=== PATIENT | female | born 1965 | race Caucasian/White ===

== ENCOUNTER 2019-11-14 14:38 | Outpatient (CLI) | payer BC, SELFPAY ==
--- NOTE | 2019-11-14 14:45 | MM_ITS ---
WS: [id number] BILATERAL DIGITAL SCREENING MAMMOGRAPHY WITH CAD CLINICAL INFORMATION: SCREENING HISTORY: Screening mammogram. No current complaints. COMPARISON: TECHNIQUE: Bilateral CC and MLO views. FINDINGS: The breasts are composed of heterogeneous fibroglandular density tissue, which can limit the detectio n of small underlying mass lesions. No suspicious mass, asymmetry, calcifications, or architectural d istortion. No evidence of malignancy. MM/[id number] IMPRESSION: BI-RADS: 1-Negative FOLLOW UP: 1 Year Follow-up Recommend return to annual screening mammography.
== END 2019-11-14 14:39 | disposition home or self-care (01) ==
LOC: RADSHAW 14:44
PROVIDERS: PCP Nurse Practitioner Family; Visit Provider Nurse Practitioner Family
DX: Z12.31 Encounter for screening mammogram for malignant neoplasm of breast (principal)
CPT/HCPCS: 77067

== ENCOUNTER 2020-12-15 14:42 | Outpatient (CLI) | payer BC, SELFPAY ==
--- NOTE | 2020-12-15 14:53 | XR_ITS ---
WS: [id number] LEFT WRIST: 3 VIEW(S) TECHNIQUE: PA, oblique and lateral. HISTORY: L WRIST PAIN COMPARISON: None available. No acute fracture or dislocation. No joint space abnormality. No soft tissue swelling. XR/XR wrist LT min 3V* [id number] IMPRESSION: Negative LEFT wrist.
== END 2020-12-15 14:43 | disposition home or self-care (01) ==
LOC: RAD 14:50
PROVIDERS: PCP Nurse Practitioner Family; Visit Provider Nurse Practitioner Family
DX: M25.532 Pain in left wrist (principal)
CPT/HCPCS: 73110

== ENCOUNTER 2021-01-04 08:36 | Outpatient (CLI) | payer BC, SELFPAY ==
--- NOTE | 2021-01-04 08:41 | MM_ITS ---
WS: [id number] Bilateral screening digital mammogram, 01/04/2021 Clinical Data: SCREENING Comparison: 11/14/2019, 12/11/2017, 11/26/2017, 11/24/2016, 11/05/2014, 11/04/2013, 11/06/2012, 10/21/2012, 11/12, 10/31/2010, 10/29/2009, 10/28/2008, 10/18/2007, 10/16/2006. Findings: The breast parenchymal pattern shows fibroglandular tissue No spiculated masses or clustered calcific ations are seen. There are no secondary signs of carcinoma. There is a mole marker on the right breas t. MM/[id number] Impression: 1. Negative bilateral mammogram unchanged. 2. Recommend annual screening mammograms. BIRADS: 1-Negative FOLLOW UP: 1 Year Follow-up The CAD hot box checker was used.
== END 2021-01-04 08:37 | disposition home or self-care (01) ==
LOC: RADSHAW 08:38
PROVIDERS: PCP Nurse Practitioner Family; Visit Provider Nurse Practitioner Family
DX: Z12.31 Encounter for screening mammogram for malignant neoplasm of breast (principal)
CPT/HCPCS: 77067

== ENCOUNTER → 2021-06-08 08:01 | Outpatient (BNVA) | payer BC, SELFPAY | PROVIDERS: PCP Nurse Practitioner Family; Referring Provider Nurse Practitioner Family; Visit Provider Specialist | DX: M25.532 Pain in left wrist (principal); G56.02 Carpal tunnel syndrome, left upper limb; M65.4 Radial styloid tenosynovitis [de Quervain] | CPT/HCPCS: 73110 ==

== ENCOUNTER 2021-06-21 06:00 | Outpatient (RCR) | payer BC, SELFPAY | END 2021-06-30 23:59 | disposition home or self-care (01) | LOC: TPT 06:00 | PROVIDERS: PCP Nurse Practitioner Family; Referring Provider Specialist; Visit Provider Specialist | DX: M25.512 Pain in left shoulder (principal) | CPT/HCPCS: 97110; 97140; 97162 ==

== ENCOUNTER 2021-07-01 06:00 | Outpatient (RCR) | payer OTHER, BC, SELFPAY | END 2021-07-30 23:59 | disposition home or self-care (01) | LOC: TPT 06:00 | PROVIDERS: PCP Nurse Practitioner Family; Referring Provider Specialist; Visit Provider Specialist | DX: M25.512 Pain in left shoulder (principal) | CPT/HCPCS: 97110; 97140 ==

== ENCOUNTER 2021-07-31 06:00 | Outpatient (RCR) | payer BC, SELFPAY | END 2021-08-08 23:59 | disposition home or self-care (01) | LOC: TPT 06:00 | PROVIDERS: PCP Nurse Practitioner Family; Referring Provider Specialist; Visit Provider Specialist | DX: M25.512 Pain in left shoulder (principal) | CPT/HCPCS: 97110; 97140 ==